=== PATIENT | male | born 1965 | race Caucasian/White ===

== ENCOUNTER 2016-09-29 11:22 | Emergency (ER) | payer BC ==
[2016-09-29 12:15] VITALS: BP 124/81
--- NOTE | 2016-09-29 12:20 | UC ---
Ear Complaint HPI - HPI Summary HPI Summary: left ear pressure - History of Current Complaint Chief Complaint: UCEar Stated Complaint: EAR ACHE Time Seen by Provider: 09/29/16 12:14 Hx Obtained From: Patient Onset/Duration: Sudden Onset, Lasting Days, Still Present Severity Initially: Moderate Severity Currently: Moderate Pain Intensity: 6 Pain Scale Used: 0-10 Numeric Alleviating Factors: Nothing Related History: Other (Noted In Comments) - was flying just prior to the ear feeling clogged, - Allergies/Home Medications Allergies/Adverse Reactions: Allergies Allergy/AdvReac Type Severity Reaction Status Date / Time No Known Allergies Allergy Verified 09/29/16 12:05 Home Medications: Home Medications NK [No Home Medications Reported] 09/29/16 [History Confirmed 09/29/16] PMH/Surg Hx/FS Hx/Imm Hx Previously Healthy: Yes - Surgical History Surgical History: Yes Surgery Procedure, Year, and Place: inguinal hernia repair - Family History Known Family History: Positive: None Family History: no reported cardiovascular issues in family lineage - Social History Occupation: Employed Full-time Lives: With Family Alcohol Use: Occasionally Substance Use Type: None Smoking Status (MU): Never Smoked Tobacco Review of Systems Constitutional: Negative Skin: Negative Eyes: Negative ENT: Ear Ache - left Respiratory: Negative Cardiovascular: Negative Gastrointestinal: Negative Genitourinary: Negative Motor: Negative Neurovascular: Negative Musculoskeletal: Negative Neurological: Negative Psychological: Negative All Other Systems Reviewed And Are Negative: Yes Physical Exam Triage Information Reviewed: Yes Appearance: Well-Appearing, No Pain Distress, Well-Nourished Vital Signs: Initial Vital Signs Temp 98.4 F 09/29/16 12:06 Pulse 71 09/29/16 12:06 Resp 16 09/29/16 12:06 BP 124/81 09/29/16 12:06 Pulse Ox 97 09/29/16 12:06 Vital Signs Reviewed: Yes Eye Exam: Normal ENT Exam: Normal ENT: Positive: Normal ENT inspection, Hearing grossly normal, Pharynx normal, TMs normal - right, Other: - left cerumen imaction. Negative: Nasal congestion , Nasal drainage, Tonsillar swelling, Tonsillar exudate, Trismus, Muffled/ hoarse voice Dental Exam: Normal Neck exam: Normal Neck: Positive: Supple, Nontender, No Lymphadenopathy Respiratory Exam: Normal Respiratory: Positive: Chest non-tender, Lungs clear, Normal breath sounds, No respiratory distress, No accessory muscle use Cardiovascular Exam: Normal Cardiovascular: Positive: RRR, No Murmur, Pulses Normal, Brisk Capillary Refill Musculoskeletal Exam: Normal Musculoskeletal: Positive: Strength Intact, ROM Intact, No Edema Neurological Exam: Normal Neurological: Positive: Alert, Muscle Tone Normal Psychological Exam: Normal Skin Exam: Normal Re-Evaluation - Re-Evaluation First Eval Change: Improved - ar flush with large amont of cerumen return patients sx resolved Ear Complaint Course/Dx - Course Course Of Treatment: avoid soaps in ear canal flush with clear warm water - Differential Dx/Diagnosis Differential Diagnosis/HQI/PQRI: Cerumen Impaction, Otitis Externa, Otitis Media , URI Provider Diagnoses: Left cerumen impaction- resolved Discharge - Discharge Plan Condition: Stable Disposition: HOME Patient Education Materials: Cerumen Impaction (ED) Referrals: [facility] [place] [facility] [Outside] - If Needed
== END 2016-09-29 12:45 | disposition home or self-care (01) ==
LOC: UCEAST 11:22
DX: H61.22 Impacted cerumen, left ear (principal)
CPT/HCPCS: 99213; G0463

== ENCOUNTER 2018-01-30 11:57 | Emergency (ER) | payer BC ==
--- NOTE | 2018-01-30 12:20 | UC ---
Back Pain HPI - HPI Summary HPI Summary: 52 yo male presents with low back pain. 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 The next day he woke up a stiff lower back, worse on the right side. He applied heat and took ibuprofen with minimal relief. His pain is persisting and he also notes some spasms in this area. Denies fever, dysuria, numbness, tingling, injury, saddle anesthesia, or loss of bowel/bladder control. - History of Current Complaint Stated Complaint: BACK PAIN Time Seen by Provider: 01/30/18 12:19 Hx Obtained From: Patient Onset/Duration: Sudden Onset Timing: Constant Severity Initially: Moderate Severity Currently: Severe Pain Intensity: 9 Pain Scale Used: 0-10 Numeric - Allergies/Home Medications Allergies/Adverse Reactions: Allergies Allergy/AdvReac Type Severity Reaction Status Date / Time No Known Allergies Allergy Verified 01/30/18 12:25 PMH/Surg Hx/FS Hx/Imm Hx - Additional Past Medical History Additional PMH: Scoliosis - Surgical History Surgical History: Yes Surgery Procedure, Year, and Place: inguinal hernia repair - Family History Known Family History: Positive: None Family History: no reported cardiovascular issues in family lineage - Social History Occupation: Employed Full-time Alcohol Use: Occasionally Substance Use Type: None Smoking Status (MU): Never Smoked Tobacco Review of Systems Constitutional: Negative Skin: Negative Respiratory: Negative Cardiovascular: Negative Gastrointestinal: Negative Genitourinary: Negative Neurovascular: Negative Musculoskeletal: Other: - LBP Neurological: Negative Psychological: Negative All Other Systems Reviewed And Are Negative: Yes Physical Exam - Summary Physical Exam Summary: GENERAL: NAD. WDWN. No pain distress. SKIN: No rashes, sores, lesions, or open wounds. NECK: Supple. FROM. Nontender. No lymphadenopathy. CHEST: CTAB. No r/r/w. No accessory muscle use. Breathing comfortably and in no distress. CV: RRR. Without m/r/g. Pulses intact. Cap refill <2seconds MSK: TTP over right lumbar paraspinal muscles. Pain with flexion and extension of spine. Positive SLR on right for low back pain without radiation. Positive JOEL for back pain right. Strength 5/5 B/L LEs including dorsiflexion and plantar flexion. FROM B/L LEs. No edema. NEURO: Alert. Sensations intact B/L LEs L3-S1. PSYCH: Age appropriate behavior. Triage Information Reviewed: Yes Vital Signs: Vital Signs: Temp Pulse Resp BP Pulse Ox 98.4 F 73 16 152/97 99 01/30/18 12:20 01/30/18 12:20 01/30/18 12:20 01/30/18 12:20 01/30/18 12:20 Vital Signs Reviewed: Yes Back Pain Course/Dx - Course Course Of Treatment: Suspect low back strain/spasm. Advised to continue applying heat and taking ibuprofen. Will rx for flexeril and have him f/u prn. - Differential Dx/Diagnosis Provider Diagnoses: Low back pain Discharge - Sign-Out/Discharge Documenting (check all that apply): Patient Departure All imaging exams completed and their final reports reviewed: No Studies - Discharge Plan Condition: Stable Disposition: HOME Prescriptions: Cyclobenzaprine TAB* [Flexeril 10 MG TAB*] 10 mg PO TID PRN #21 tab PRN Reason: Pain Patient Education Materials: Low Back Strain (ED), Lower Back Exercises (ED) Referrals: Ronaldo Farris MD [Primary Care Provider] - Additional Instructions: If you develop a fever, shortness of breath, chest pain, new or worsening symptoms - please call your PCP or go to the ED. Your blood pressure was high at todays visit. Please see your primary provider within 4 weeks for recheck and re-evaluation. - Billing Disposition and Condition Condition: STABLE Disposition: Home
[2018-01-30 12:25] VITALS: BP 152/97
== END 2018-01-30 12:47 | disposition home or self-care (01) ==
LOC: UCEAST 11:57
DX: M54.5 Low back pain (principal)
CPT/HCPCS: 99212; G0463

== ENCOUNTER 2018-12-04 13:42 | Emergency (ER) | payer BC ==
[2018-12-04 14:11] VITALS: BP 146/91
--- NOTE | 2018-12-04 15:54 | UC ---
General HPI - HPI Summary HPI Summary: ONSET YESTERDAY OF NECK/UPPER BACK PAIN AND INTENSE FATIGUE. THIS MORNING DEVELOPED A HEADACHE. HE NOTICED A RED RASH ON THE TOP OF HIS LEFT SECOND AND THIRD TOES. CHECKED HIS TEMPERATURE AND IT WAS 99. TOOK IBUPROFEN WHICH HELPED HIS SYMPTOMS. DENIES ANY HISTORY OF TICK BITES BUT STATES HE WALKS THROUGH SOME [place] AND [employer] ABOUT ONCE PER WEEK TO GET TO [employer]. HIS SON HAD LYME DISEASE SO HE IS CONCERNED ABOUT THIS. - History of Current Complaint Chief Complaint: UCGeneralIllness Stated Complaint: RASH ON FOOTHA/BACKPAIN/NECK PAIN Time Seen by Provider: 12/04/18 14:50 Hx Obtained From: Patient Onset/Duration: Gradual Onset, Lasting Hours, Still Present Timing: Constant Onset Severity: Mild Current Severity: Mild Pain Intensity: 1 Associated Signs & Symptoms: Positive: Headache. Negative: Abdominal Pain, Back Pain, Decreased Responsiveness, Dizziness, Fever, Nausea, Recent Medication Changes, Syncope, SOB - Allergy/Home Medications Allergies/Adverse Reactions: Allergies Allergy/AdvReac Type Severity Reaction Status Date / Time No Known Allergies Allergy Verified 12/04/18 14:11 Home Medications: Home Medications Ibuprofen TAB* [Advil TAB*] 200 mg PO Q6H PRN 12/04/18 [History Confirmed ] PMH/Surg Hx/FS Hx/Imm Hx - Additional Past Medical History Additional PMH: SCOLIOSIS WITH CHRONIC BACK PAIN - Surgical History Surgical History: Yes Surgery Procedure, Year, and Place: inguinal hernia repair - Family History Known Family History: Positive: None Family History: no reported cardiovascular issues in family lineage - Social History Alcohol Use: Occasionally Substance Use Type: None Smoking Status (MU): Never Smoked Tobacco Review of Systems All Other Systems Reviewed And Are Negative: Yes Constitutional: Positive: Fatigue Skin: Positive: Rash Respiratory: Positive: Negative Cardiovascular: Positive: Negative Gastrointestinal: Positive: Negative Musculoskeletal: Positive: Arthralgia, Myalgia Neurological: Positive: Headache Physical Exam Triage Information Reviewed: Yes Appearance: Well-Appearing, No Pain Distress, Well-Nourished Vital Signs: Initial Vital Signs Temp 98.8 F 12/04/18 14:06 Pulse 70 12/04/18 14:06 Resp 16 12/04/18 14:06 BP 146/91 12/04/18 14:06 Pulse Ox 99 07/31/19 14:06 Vital Signs Reviewed: Yes Eyes: Positive: Conjunctiva Clear ENT: Positive: Hearing grossly normal Neck: Positive: Supple, Nontender, No Lymphadenopathy Respiratory Exam: Normal Cardiovascular Exam: Normal Abdomen Description: Positive: Soft Musculoskeletal: Positive: ROM Intact, No Edema Neurological: Positive: Alert, Muscle Tone Normal, Other: - NO SIGNS OF MENINGISMUS Psychological: Positive: Age Appropriate Behavior Skin: Positive: Rashes - 1.5 INCH AREA OF ERYTHEMA DORSAL SURFACE OF LEFT FOOT IN BETWEEN 2ND AND 3RD MTP JOINTS. NON TENDER Course/Dx - Course Course Of Treatment: PATIENT PRESENTS WITH VAGUE CONSTELLATION OF SYMPTOMS INCLUDING HEADACHE, NECK PAIN, FATIGUE AND BODY ACHES. HAS NONSPECIFIC RED RASH ON HIS LEFT FOOT. IT DOES NOT APPEAR TO BE A TARGET RASH. NO FEVER. HE REPORTS HE DOES WALK THROUGH THE [place] ABOUT ONCE A WEEK WHEN HE GOES TO [employer] BUT DOES NOT RECALL EVER HAVING A TICK ATTACH. HIS SON HAD LYME DISEASE SO HE IS CONCERNED ABOUT THIS. WOULD NOT INITIATE TREATMENT TODAY BUT WILL CHECK LYME SEROLOGY WELL CBC, CMP AND TSH. WILL HAVE PATIENT FOLLOW-UP WITH HIS PCP IN A COUPLE OF WEEKS FOR REEVALUATION AND WILL CALL HIM WITH ANY ABNORMAL LAB RESULTS IN THE MEANTIME. - Diagnoses Provider Diagnosis: Fatigue Discharge - Sign-Out/Discharge Documenting (check all that apply): Patient Departure All imaging exams completed and their final reports reviewed: No Studies - Discharge Plan Condition: Stable Disposition: HOME Patient Education Materials: Fatigue (ED) Referrals: Ronaldo Farris MD [Primary Care Provider] - 2 Weeks Additional Instructions: GIVEN YOUR SYMPTOMS WILL FURTHER EVALUATE YOUR SYMPTOMS WITH BLOOD WORK INCLUDING LYME SEROLOGY, BLOOD COUNT, METABOLIC PANEL AND THYROID TESTS. YOU HAVE DECLINED EMPIRIC TREATMENT FOR LYME DISEASE IN FAVOR OF AWAITING RESULTS OF TESTING WHICH I THINK IS REASONABLE. SHOULD YOU DEVELOP A TARGET RASH, FEVER OR WORSENING HEADACHE, JOINT PAINS/BODY ACHES WOULD SEEK REEVALUATION. IF SYMPTOMS IMPROVE OR STAY THE SAME AND YOUR INITIAL LYME SCREEN IS POSITIVE I RECOMMEND AWAITING CONFIRMATORY RESULTS PRIOR TO INITIATING ANTIBIOTIC THERAPY. WE WILL CALL YOU WITH ANY ABNORMAL LAB RESULTS. - Billing Disposition and Condition Condition: STABLE Disposition: Home
[2018-12-04 19:17] LABS: ABS Basophils 0.1 10^3/ul (0-0.2); ABS Eosinophils 0.1 10^3/ul (0-0.6); ABS Lymphocytes 1.4 10^3/ul (1.0-4.8); ABS Neutrophils 2.4 10^3/ul (1.5-7.7); Eosinophil % 1.3 %; Hematocrit 43 % (42-52); Hemoglobin 14.9 g/dL (14.0-18.0); Lymphocyte % 28.1 %; Mean Corpuscular HGB Conc 35 g/dL (31-36); Mean Corpuscular Hemoglobin 32 pg (27-31); Mean Corpuscular Volume 92 fL (80-94); Mean Platelet Volume 7.8 fL (7.4-10.4); Nucleated Red Blood Cells % 0.1; Platelet Count 267 10^3/uL (150-450); Red Blood Count 4.66 10^6 /uL (4.18-5.48); Red Cell Distribution Width 13 % (10-15)
[2018-12-04 19:29] LABS: Albumin 4.5 g/dL (3.2-5.2); Calcium 9.9 mg/dL (8.6-10.3); Potassium 4.5 mmol/L (3.5-5.0); Total Bilirubin 0.6 mg/dL (0.2-1.0)
[2018-12-04 19:35] LABS: Albumin/Globulin Ratio 1.5 (1-3); BUN/Creatinine Ratio 23.5 (8-20); EGFR African American 121.1 (>60); EGFR Non-African American 100.1 (>60); Total Protein 7.5 g/dL (6.4-8.9)
[2018-12-04 19:41] LABS: TSH (Thyroid Stimulating Horm) 1.17 mcIU/mL (0.34-5.60)
== END 2018-12-04 15:27 | disposition home or self-care (01) ==
LOC: UCEAST 13:42
DX: R53.83 Other fatigue (principal); R51 Headache; R21 Rash and other nonspecific skin eruption
CPT/HCPCS: 36415; 80053; 84443; 85025; 86618; 99211; G0463